=== PATIENT | male | born 1940 | race Caucasian/White ===

== ENCOUNTER 2017-04-05 10:50 | Outpatient (CLI) | payer MEDICARE ==
[2017-04-05 11:31] LABS: ALT (SGPT) 13 U/L (8-55); AST (SGOT) 16 U/L (5-34); Albumin 4.2 g/dL (3.4-4.8); Alkaline Phosphatase 88 U/L (40-150); Anion Gap 15 mmol/L (10-20); BUN (Urea Nitrogen) 14 mg/dL (8.4-25.7); Bilirubin, Total 0.7 mg/dL (0.2-1.2); Calc. Creatinine Clearance 0 mL/min (70-130); Calcium 9.3 mg/dL (7.8-10.44); Carbon Dioxide 25 mmol/L (23-31); Cardiac Risk 2.7 (Less than 4.5); Chloride 104 mmol/L (98-107); Cholesterol 146 mg/dl (< 200 Desired); Estimated GFR-MDRD 57; Glucose 93 mg/dL (83-110); HDL Cholesterol 55 mg/dL (>60 Neg Risk); LDL Cholesterol, Calculated 76 mg/dL; Potassium 4.9 mmol/L (3.5-5.1); Protein, Total 7.2 g/dL (5.8-8.1); Sodium 139 mmol/L (136-145); Triglycerides 76 mg/dL (Less than 150)
[2017-04-05 11:41] LABS: #Basophils 0.1 thou/uL (0.0-0.2); #Eosinphils 0.2 thou/uL (0.0-0.7); #Lymphocytes 1.2 thou/uL (1.20-3.40); #Monocytes 0.4 thou/uL (0.11-0.59); #Neutrophils 3.6 thou/uL (1.40-6.50); %Basophils 1.3 % (0.0-1.0); %Eosinophils 3.6 % (0.0-10.0); %Lymphocytes 21.2 % (21.0-51.0); %Monocytes 7.8 % (0.0-10.0); %Neutrophils 66.1 % (42.0-75.0); Hemoglobin 13.7 g/dL (14.0-18.0); Mean Corpuscular HGB CONC 33.3 g/dL (32.0-36.0); Mean Corpuscular Hemoglobin 34.8 pg (27.0-31.0); Mean Platelet Volume 6.9 fL (7.4-10.4); Platelet Count 205 thou/uL (130-400); RBC Distribution Width 12.5 % (11.5-14.5); Red Blood Cell (RBC) Count 3.95 mill/uL (4.70-6.10); White Blood Cell (WBC) Count 5.4 thou/uL (4.8-10.8)
[2017-04-05 12:16] LABS: MDiff Complete? YES; Macrocytosis SLIGHT = 6-15 cells (100X) (0-5/hpf); PLT Morphology Comment Appears Adequate
== END 2017-04-05 10:51 | disposition home or self-care (01) ==
LOC: HPCALD 10:50
PROVIDERS: ATTEND Family Medicine
DX: Z12.5 Encounter for screening for malignant neoplasm of prostate (principal); Z13.6 Encounter for screening for cardiovascular disorders; I10 Essential (primary) hypertension
CPT/HCPCS: 36415; 80053; 80061; 85025; G0103

== ENCOUNTER 2020-11-16 09:18 | Inpatient (IN) | payer MEDICARE ==
[2020-11-16] MEDS ORDERED: Albuterol Sulfate 2.5 mg/3 ml Neb ONE (09:37)
[2020-11-16] MEDS ORDERED: Albuterol Sulfate 1.25 MG/3 ML NEB ONE (09:58)
[2020-11-16 10:19] LABS: ALT (SGPT) 19 U/L (8-55); AST (SGOT) 23 U/L (5-34); Albumin 3.5 g/dL (3.4-4.8); Alkaline Phosphatase 72 U/L (40-110); Anion Gap 13 mmol/L (10-20); BUN (Urea Nitrogen) 17 mg/dL (8.4-25.7); Bilirubin, Total 1.1 mg/dL (0.2-1.2); Calc. Creatinine Clearance 0 mL/min (70-130); Calcium 8.5 mg/dL (7.8-10.44); Carbon Dioxide 22 mmol/L (23-31); Chloride 100 mmol/L (98-107); Globulin 2.8 g/dL (2.4-3.5); Glucose 109 mg/dL (83-110); Lipase 41 U/L (8-78); Potassium 4.7 mmol/L (3.5-5.1); Protein, Total 6.3 g/dL (5.8-8.1); Sodium 130 mmol/L (136-145)
[2020-11-16 10:20] LABS: Band 2 % (5-11); Hemoglobin 11.7 g/dL (14.0-18.0); Lymphocytes 26 % (21-51); MDiff Complete? YES; Mean Corpuscular HGB CONC 32.7 g/dL (32.0-36.0); Mean Corpuscular Hemoglobin 33.6 pg (27.0-31.0); Mean Platelet Volume 7.8 fL (7.4-10.4); Monocytes 4 % (0-10); Neutrophil 68 % (42-75); Platelet Count 111 thou/uL (130-400); Platelet Morphology Comment Appears Decreased; RBC Distribution Width 12.2 % (11.5-14.5); Red Blood Cell (RBC) Count 3.49 mill/uL (4.70-6.10); White Blood Cell (WBC) Count 4.5 thou/uL (4.8-10.8)
[2020-11-16] MEDS ORDERED: Sodium Chloride 0.9% 100 ML ONE (10:43)
[2020-11-16] MEDS ORDERED: cefTRIAXone\\ROCEPHIN 1 GM VIAL ONE (10:43)
[2020-11-16] MEDS ORDERED: Azithromycin 500 MG VIAL ONE (11:10)
[2020-11-16] MEDS ORDERED: Aspirin Chewable 81 MG TAB ONE (11:10)
[2020-11-16 11:38] LABS: Bilirubin Negative (Negative); Blood, Urine Negative (Negative); Clarity Clear (Clear); Glucose, Urine (Dipstick) Negative (Negative); Ketone, Urine Negative (Negative); Leukocyte Negative (Negative); Nitrite Negative (Negative); Protein, Urine (Dipstick) Negative (Neg-Trace); Specific Gravity, Urine 1.015 (1.005-1.030); Urobilinogen 0.2 mg/dL (Less than 2)
[2020-11-16 12:05] LABS: SARS-CoV-2 NAA Rapid Test DETECTED (NotDetected)
[2020-11-16] MEDS ORDERED: Albuterol 200 PUFF (6.7GM INHALER) INH PRN (12:30)
[2020-11-16] MEDS ORDERED: Ondansetron PF 4 MG/2 ML Vial IVP PRN (12:30)
[2020-11-16] MEDS ORDERED: Ondansetron ODT 4 MG TAB SL PRN (12:30)
[2020-11-16 13:38] VITALS: BMI 25.1
--- NOTE | 2020-11-16 17:39 | RAD ---
PORTABLE CHEST: Date: 11-16-2020 An AP portable film at 1004 is compared with a 07-20-12 study. FINDINGS: The heart is mildly enlarged, perhaps a little more so than before. A cardiac pacer is in place. Ther e is some slight elevation of the left hemidiaphragm, probably with a little bit of overlying niko sive atelectasis. There are no lobar infiltrates. Some of the vessels are slightly prominent but not enough to diagnose congestive change. IMPRESSION: Mild cardiomegaly. POS: HOME
[2020-11-16] MEDS: Enoxaparin Sodium 40 MG/0.4 ML SYRINGE SC SCH (21:59)
[2020-11-16] MEDS: Carvedilol 25 MG TAB PO SCH (22:00)
[2020-11-16] MEDS: Atorvastatin Calcium 10 MG TAB PO SCH (22:00)
[2020-11-16] MEDS: Acetaminophen 325 MG TAB PO PRN (22:03)
[2020-11-17 04:59] LABS: ALT (SGPT) 23 U/L (8-55); AST (SGOT) 32 U/L (5-34); Albumin 3.8 g/dL (3.4-4.8); Alkaline Phosphatase 91 U/L (40-110); Anion Gap 15 mmol/L (10-20); BUN (Urea Nitrogen) 16 mg/dL (8.4-25.7); Bilirubin, Total 0.7 mg/dL (0.2-1.2); Calc. Creatinine Clearance 52 mL/min (70-130); Calcium 9.1 mg/dL (7.8-10.44); Carbon Dioxide 24 mmol/L (23-31); Chloride 100 mmol/L (98-107); Globulin 3.2 g/dL (2.4-3.5); Glucose 103 mg/dL (83-110); Potassium 4.3 mmol/L (3.5-5.1); Sodium 135 mmol/L (136-145)
[2020-11-17 05:09] LABS: Band 8 % (5-11); Eosinophils 1 % (0-10); Hemoglobin 13.1 g/dL (14.0-18.0); Lymphocytes 25 % (21-51); MDiff Complete? YES; Macrocytosis SLIGHT = 6-15 cells (100X) (0-5/hpf); Mean Corpuscular Hemoglobin 34.5 pg (27.0-31.0); Mean Platelet Volume 8.2 fL (7.4-10.4); Monocytes 15 % (0-10); Neutrophil 49 % (42-75); Platelet Count 127 thou/uL (130-400); Platelet Morphology Comment Appears Decreased; RBC Distribution Width 12.1 % (11.5-14.5); Reactive Lymphocytes 1 % (0-10); White Blood Cell (WBC) Count 3.7 thou/uL (4.8-10.8)
--- NOTE | 2020-11-17 06:46 | HP ---
CHIEF COMPLAINT: Cough. HISTORY OF PRESENT ILLNESS: This is an 80-year-old male, who was brought in to the [facility] Emergency Department by EMS secondary to his having called their services from the half-way that she stays in due to patient complaints of worsening upper respiratory symptoms including cough that has been intermittently productive over the last 4-5 days. In conjunction with this, he has had generalized fatigue with poor intake overall and chills. He did not express to have any known sick contacts or fever. Workup in the emergency department revealed concern for a right lower lobe infiltrate with effusion. Cultures were obtained and the patient was started empirically on IV azithromycin and Rocephin. Secondary to his poor intake, he was provided 1 L of normal saline intravenous fluids. On exam, the patient had audible wheezing for which he was provided a nebulized albuterol treatment and use of a Ventolin inhaler. The patient was subsequently found to be COVID positive and the patient has been admitted for COVID positive pneumonia. PAST MEDICAL HISTORY: Includes hypertension and dyslipidemia. PAST SURGICAL HISTORY: Includes pacemaker, bilateral endarterectomy, cardiac ablation, and cataract repair. SOCIAL HISTORY: The patient is a nonsmoker with no EtOH or illicit drug use. ALLERGIES: ADHESIVE BANDAGES. FAMILY HISTORY: Noncontributory. HOME MEDICATIONS: 1. Isosorbide mononitrate extended release 60 mg daily. 2. Vitamin B12 250mcg daily. 3. Magnesium 400 mg b.i.d. 4. Aspirin 81 mg daily. 5. Pravastatin 40 mg at bedtime. 6. Carvedilol 25 mg b.i.d. 7. Folic acid 1 mg daily. 8. Amlodipine 10 mg daily. 9. Plavix 75 mg daily. REVIEW OF SYSTEMS: GENERAL: The patient complains of chills, malaise. Denies fever. HEAD, EYES, EARS, NOSE, AND THROAT: Complains of rhinorrhea. CARDIOVASCULAR: Denies chest pain or palpitations. RESPIRATORY: Complains of persistent cough. GASTROINTESTINAL: Denies nausea, vomiting, diarrhea or abdominal pain. GENITOURINARY: Complains of dysuria. MUSCULOSKELETAL: Complains of body aches. DERMATOLOGIC: Denies rash. NEUROLOGIC: Denies headache. LABORATORY DATA: White blood cell count 4.5, hemoglobin 11.7, hematocrit 35.9, platelets 111. Sodium is 130, potassium 4.7, BUN 17, creatinine 1.30, GFR is 53, glucose 109, lactic acid 1.0. AST 23, ALT 19, alkaline phosphatase 72. Troponin 0.026. BNP 214.8, lipase 41. IMAGING: Official chest x-ray radiological read is pending with ED evaluation concerning for right lower lobe infiltrate with effusion. PHYSICAL EXAMINATION: VITAL SIGNS: Temperature is 98, pulse is 63, respiratory rate 18, oxygen is 94% on room air, and blood pressure 143/67. GENERAL: The patient is alert and oriented, in no acute distress. He has a mild tremor due to chills on exam. HEAD, EYES, EARS, NOSE, AND THROAT: Normocephalic and atraumatic. Extraocular muscles are intact. Sclerae are clear. He has moist mucous membranes. NECK: Supple without lymphadenopathy. CARDIOVASCULAR: Regular rate and rhythm. Normal S1, S2. RESPIRATORY: Diminished breath sounds to the lung bases. Few faint scattered wheezes. No rhonchi. No respiratory distress. ABDOMEN: Soft and nontender to palpation. No rebound or guarding. No masses. EXTREMITIES: No clubbing, cyanosis, or edema. SKIN: No rashes. NEUROLOGIC: Nonfocal with cranial nerves 2 through 12 grossly intact. ASSESSMENT AND PLAN: 1. COVID pneumonia. The patient has been placed in isolation precautions and will follow up blood and urine cultures along with trending of labs and the patient will be resumed on IV Rocephin and p.o. azithromycin. He will also be provided IV dexamethasone. He is currently stable on room air. He will be provided an inhaler for p.r.n. use. We will monitor the patient's p.o. intake. 2. Pancytopenia. The patient's labs appear mildly off his baseline. We will trend his CBC and obtain peripheral smear if indicated. 3. Chronic hyponatremia. We will trend the patient's sodium and consider intravenous fluids as needed. 4. Hypertension. The patient is hemodynamically stable. We will resume his usual blood pressure medications. 5. Dyslipidemia. The patient's statins will be resumed. 6. Prophylaxis. We will provide pantoprazole for gastrointestinal prophylaxis and Lovenox for deep venous thrombosis prophylaxis. CODE STATUS: Full. DISPOSITION: We will plan for the patient to discharge home pending improvement in regard to his COVID pneumonia status and improved p.o. intake and finalizing of obtained cultures. Job ID: [id number] MTDD
[2020-11-17] MEDS ORDERED: FLU VACC QS2020-21(65YR UP)/PF 240 MCG/0.7 ML SYRINGE IM ONE (09:00)
[2020-11-17] MEDS: Dexamethasone 6 MG in Sodium Chloride 0.9% 50 ML IVPB SCH ×2 (09:04→09:19)
[2020-11-17] MEDS: Amlodipine 10 MG TAB PO SCH (09:17)
[2020-11-17] MEDS: Clopidogrel Bisulfate 75 MG TAB PO SCH (09:17)
[2020-11-17] MEDS: Azithromycin 250 MG TAB PO SCH (09:18)
[2020-11-17] MEDS: Folic Acid 1 MG TAB PO SCH (09:18)
[2020-11-17] MEDS: Carvedilol 25 MG TAB PO SCH ×2 (09:18→21:16)
[2020-11-17] MEDS: Dexamethasone 4 mg/ml Vial SLOW IVP SCH (09:20)
[2020-11-17] MEDS ORDERED: cefTRIAXone\\ROCEPHIN 1 GM in Sodium Chloride 0.9% 100 ML IVPB SCH (10:00)
[2020-11-17] MEDS: Acetaminophen 325 MG TAB PO PRN ×2 (14:04→21:16)
[2020-11-17] MEDS: Atorvastatin Calcium 10 MG TAB PO SCH (21:16)
[2020-11-17] MEDS: Enoxaparin Sodium 40 MG/0.4 ML SYRINGE SC SCH (21:16)
[2020-11-18 06:45] LABS: Anion Gap 17 mmol/L (10-20); BUN (Urea Nitrogen) 28 mg/dL (8.4-25.7); Calc. Creatinine Clearance 76 mL/min (70-130); Calcium 9.3 mg/dL (7.8-10.44); Carbon Dioxide 19 mmol/L (23-31); Chloride 100 mmol/L (98-107); Glucose 140 mg/dL (83-110); Potassium 4.4 mmol/L (3.5-5.1); Sodium 132 mmol/L (136-145)
[2020-11-18 06:48] LABS: #Lymphocytes 0.6 thou/uL (1.20-3.40); #Monocytes 0.5 thou/uL (0.11-0.59); #Neutrophils 4.7 thou/uL (1.40-6.50); %Basophils 0.3 % (0.0-1.0); %Monocytes 8.4 % (0.0-10.0); %Neutrophils 81.2 % (42.0-75.0); Hemoglobin 13.3 g/dL (14.0-18.0); Mean Corpuscular Hemoglobin 35.1 pg (27.0-31.0); Mean Platelet Volume 7.5 fL (7.4-10.4); Platelet Count 142 thou/uL (130-400); White Blood Cell (WBC) Count 5.7 thou/uL (4.8-10.8)
[2020-11-18 06:54] LABS: Macrocytosis SLIGHT = 6-15 cells (100X) (0-5/hpf); Platelet Morphology Comment Appears Adequate
[2020-11-18] MEDS: Sodium Chloride 1 GM TAB PO SCH (08:20)
[2020-11-18] MEDS: Carvedilol 25 MG TAB PO SCH ×2 (08:20→21:04)
[2020-11-18] MEDS: Clopidogrel Bisulfate 75 MG TAB PO SCH (08:21)
[2020-11-18] MEDS: Folic Acid 1 MG TAB PO SCH (08:21)
[2020-11-18] MEDS: Azithromycin 250 MG TAB PO SCH (08:21)
[2020-11-18] MEDS: Amlodipine 10 MG TAB PO SCH (08:21)
[2020-11-18] MEDS: Dexamethasone 4 mg/ml Vial SLOW IVP SCH (08:22)
[2020-11-18] MEDS: Acetaminophen 325 MG TAB PO PRN ×2 (11:09→21:17)
[2020-11-18] MEDS: Atorvastatin Calcium 10 MG TAB PO SCH (21:04)
[2020-11-18] MEDS: Enoxaparin Sodium 40 MG/0.4 ML SYRINGE SC SCH (21:04)
[2020-11-19 05:35] VITALS: BP 130/65; TEMP 97.1
--- NOTE | 2020-11-19 08:08 | DIS ---
DATE OF ADMISSION: 11/16/2020 DATE OF DISCHARGE: 11/19/2020 ADMISSION DIAGNOSES: COVID pneumonia, pancytopenia, chronic hypernatremia. SECONDARY DIAGNOSES: Hypertension and dyslipidemia. PROCEDURES: On 11/16/2020, chest x-ray showed mild cardiomegaly. HOSPITAL COURSE: An 80-year-old male presented to the [facility] Emergency Department via transportation by EMS secondary to progressive worsening of upper respiratory symptoms including cough and shortness of breath over a 4- to 5-day time period. He also had poor intake and progressive generalized malaise over the same time period. He was found to be COVID positive in the emergency department. He had imaging which was concerning for right lower lobe infiltrate as well for which he was provided IV azithromycin and Rocephin after urine and blood cultures had been obtained. Due to his poor intake, he was also provided intravenous fluids. He received nebulized albuterol and use of the Ventolin inhaler secondary to audible wheezing and tachypnea. He was subsequently admitted to the floor for further care in regard to his COVID pneumonia. The patient was provided IV dexamethasone and p.o. azithromycin with trending of his labs. He initially had pancytopenia possibly related to the underlying COVID, however, his labs did rebound to normalization of his white blood cell count and platelet count. He does have a mild chronic anemia. Due to his chronically low sodium, he was provided daily sodium chloride tablets and his sodium remained stable, although slightly lower than reference range. Physical Therapy evaluated the patient secondary to concern for physical deconditioning and further evaluation of his respiratory status with activity. He did improve in regard to his functional status, and the patient's intake improved back to his baseline as well. He has remained stable on room air with improved respiratory status, and along with return of his cultures being negative and stable labs, he is suitable for discharge back to his home setting at this time. DISPOSITION: The patient will be discharged home where he does live alone. He may follow up with myself in the clinic in 1 week. He has been advised of isolation precautions which he should adhere to for at least the next 10 days. DISCHARGE MEDICATIONS: Include, 1. Amlodipine 10 mg daily. 2. Pravastatin 40 mg at bedtime. 3. Folic acid 1 mg daily. 4. Isosorbide mononitrate extended release 60 mg daily. 5. Plavix 75 mg daily. 6. Carvedilol 25 mg b.i.d. 7. Sodium chloride 1 g p.o. daily. Total time spent in preparation of discharge of this patient is greater than 30 minutes. Job ID: [id number] MTDD
[2020-11-19] MEDS: Dexamethasone 4 mg/ml Vial SLOW IVP SCH (08:46)
[2020-11-19] MEDS: Sodium Chloride 1 GM TAB PO SCH (08:46)
[2020-11-19] MEDS: Amlodipine 10 MG TAB PO SCH (08:47)
[2020-11-19] MEDS: Clopidogrel Bisulfate 75 MG TAB PO SCH (08:47)
[2020-11-19] MEDS: Folic Acid 1 MG TAB PO SCH (08:47)
[2020-11-19] MEDS: Carvedilol 25 MG TAB PO SCH (08:47)
[2020-11-19] MEDS: Azithromycin 250 MG TAB PO SCH (08:48)
== END 2020-11-19 12:25 | disposition home or self-care (01) | DRG 177 ==
LOC: BURERS 09:18 → BURMED 11:41
PROVIDERS: ADMIT Family Medicine; ATTEND Family Medicine
PROC: 8E0ZXY6 Isolation (ICD-10-PCS; principal; 2020-11-16)
DX: U07.1 COVID-19 (principal); J12.82 Pneumonia due to coronavirus disease 2019; E87.1 Hypo-osmolality and hyponatremia; D61.818 Other pancytopenia; E87.0 Hyperosmolality and hypernatremia; I10 Essential (primary) hypertension; E78.5 Hyperlipidemia, unspecified; Z95.0 Presence of cardiac pacemaker; Z98.890 Other specified postprocedural states; Z98.49 Cataract extraction status, unspecified eye; Z79.82 Long term (current) use of aspirin; Z79.899 Other long term (current) drug therapy; Z79.01 Long term (current) use of anticoagulants; I51.7 Cardiomegaly
CPT/HCPCS: 0240U; 36415; 71045; 80048; 80053; 81003; 83605; 83690; 83880; 84484; 85025; 87040; 87086; 93005; 96365; 96367; J0456; J0696; J1100; J1650; J3490; J7611

== ENCOUNTER 2021-03-02 19:27 | Emergency (ER) | payer MEDICARE ==
[2021-03-02 20:12] LABS: Clarity Clear (Clear); Leukocyte Negative (Negative); Nitrite Negative (Negative); pH, Urine 8.5 (5.0-9.0)
[2021-03-02 20:13] LABS: Bilirubin Negative (Negative); Blood, Urine Negative (Negative); Glucose, Urine (Dipstick) Negative (Negative); Ketone, Urine Trace mg/dL (Negative); Protein, Urine (Dipstick) Negative (Neg-Trace); Urobilinogen 0.2 mg/dL (Less than 2)
[2021-03-02 20:21] LABS: Hemoglobin 13.7 g/dL (14.0-18.0); Mean Corpuscular HGB CONC 33.1 g/dL (32.0-36.0); Mean Corpuscular Hemoglobin 34.1 pg (27.0-31.0); Mean Platelet Volume 7.6 fL (7.4-10.4); Platelet Count 163 thou/uL (130-400); Red Blood Cell (RBC) Count 4.02 mill/uL (4.70-6.10); White Blood Cell (WBC) Count 6.7 thou/uL (4.8-10.8)
[2021-03-02 20:25] LABS: Band 9 % (5-11); Eosinophils 2 % (0-10); Lymphocytes 3 % (21-51); MDiff Complete? YES; Monocytes 14 % (0-10); Neutrophil 69 % (42-75); Reactive Lymphocytes 1 % (0-10)
[2021-03-02 20:26] LABS: ALT (SGPT) 18 U/L (8-55); AST (SGOT) 28 U/L (5-34); Albumin 4.1 g/dL (3.4-4.8); Alkaline Phosphatase 85 U/L (40-110); Anion Gap 9 mmol/L (10-20); BUN (Urea Nitrogen) 11 mg/dL (8.4-25.7); Bilirubin, Total 1.2 mg/dL (0.2-1.2); Calc. Creatinine Clearance 0 mL/min (70-130); Calcium 9.5 mg/dL (7.8-10.44); Carbon Dioxide 23 mmol/L (23-31); Chloride 93 mmol/L (98-107); Globulin 3.8 g/dL (2.4-3.5); Glucose 132 mg/dL (83-110); Lipase 22 U/L (8-78); Potassium 4.3 mmol/L (3.5-5.1); Protein, Total 7.9 g/dL (5.8-8.1); Sodium 121 mmol/L (136-145)
[2021-03-02] MEDS ORDERED: Dicyclomine 20 MG TAB ONE (20:43)
[2021-03-02 22:10] LABS: Sodium 134 mmol/L (136-145)
== END 2021-03-02 22:50 | disposition home or self-care (01) ==
LOC: BURERS 19:27
DX: R10.84 Generalized abdominal pain (principal); E87.1 Hypo-osmolality and hyponatremia; I10 Essential (primary) hypertension; E78.5 Hyperlipidemia, unspecified; Z79.899 Other long term (current) drug therapy
CPT/HCPCS: 36415; 74176; 80053; 81003; 83690; 85025; 93005

== ENCOUNTER 2021-07-14 10:46 | Inpatient (IN) | payer MEDICARE ==
[2021-07-14 17:15] VITALS: BMI 32.5
[2021-07-14] MEDS: Carvedilol 25 MG TAB PO SCH (21:18)
[2021-07-14] MEDS: traMADol HCl 50 MG TAB PO PRN (21:18)
[2021-07-14] MEDS: Senokot S 8.6-50 MG TAB PO SCH (21:19)
[2021-07-15] MEDS: Acetaminophen 325 MG TAB PO SCH ×4 (00:02→19:58)
[2021-07-15] MEDS ORDERED: Amlodipine 10 MG TAB PO SCH (09:00)
[2021-07-15] MEDS: Senokot S 8.6-50 MG TAB PO SCH ×2 (10:31→21:06)
[2021-07-15] MEDS: Carvedilol 25 MG TAB PO SCH ×2 (10:32→21:06)
[2021-07-15] MEDS: Polyethylene Glycol 3350 17 GM Packet PO SCH (10:32)
[2021-07-15] MEDS: Folic Acid 1 MG TAB PO SCH (10:32)
[2021-07-15] MEDS: Clopidogrel Bisulfate 75 MG TAB PO SCH (10:32)
[2021-07-15] MEDS: Sodium Chloride 1 GM TAB PO SCH (10:32)
[2021-07-15] MEDS: Amlodipine 5 MG TAB PO SCH (10:37)
[2021-07-15] MEDS: Enoxaparin Sodium 40 MG/0.4 ML SYRINGE SC SCH (21:06)
[2021-07-15] MEDS: Atorvastatin Calcium 10 MG TAB PO SCH (21:06)
[2021-07-15] MEDS: traMADol HCl 50 MG TAB PO PRN (21:12)
[2021-07-16] MEDS: Acetaminophen 325 MG TAB PO SCH ×4 (00:18→17:58)
[2021-07-16] MEDS: Sodium Chloride 1 GM TAB PO SCH (08:31)
[2021-07-16] MEDS: Carvedilol 25 MG TAB PO SCH ×2 (08:32→20:56)
[2021-07-16] MEDS: Folic Acid 1 MG TAB PO SCH (08:32)
[2021-07-16] MEDS: Clopidogrel Bisulfate 75 MG TAB PO SCH (08:32)
[2021-07-16] MEDS: Senokot S 8.6-50 MG TAB PO SCH ×2 (08:32→20:56)
[2021-07-16] MEDS: Amlodipine 5 MG TAB PO SCH (08:32)
[2021-07-16] MEDS: Polyethylene Glycol 3350 17 GM Packet PO SCH (08:33)
[2021-07-16] MEDS: Atorvastatin Calcium 10 MG TAB PO SCH (20:56)
[2021-07-16] MEDS: Enoxaparin Sodium 40 MG/0.4 ML SYRINGE SC SCH (20:56)
[2021-07-17] MEDS: traMADol HCl 50 MG TAB PO PRN ×2 (04:28→20:01)
[2021-07-17] MEDS: Acetaminophen 325 MG TAB PO SCH ×5 (04:29→23:27)
[2021-07-17] MEDS: Senokot S 8.6-50 MG TAB PO SCH ×2 (08:46→19:59)
[2021-07-17] MEDS: Folic Acid 1 MG TAB PO SCH (08:46)
[2021-07-17] MEDS: Sodium Chloride 1 GM TAB PO SCH (08:47)
[2021-07-17] MEDS: Carvedilol 25 MG TAB PO SCH ×2 (08:47→19:58)
[2021-07-17] MEDS: Amlodipine 5 MG TAB PO SCH (08:47)
[2021-07-17] MEDS: Clopidogrel Bisulfate 75 MG TAB PO SCH (08:47)
[2021-07-17] MEDS: Polyethylene Glycol 3350 17 GM Packet PO SCH (08:48)
[2021-07-17] MEDS: Enoxaparin Sodium 40 MG/0.4 ML SYRINGE SC SCH (19:57)
[2021-07-17] MEDS: Atorvastatin Calcium 10 MG TAB PO SCH (19:58)
[2021-07-18 05:18] LABS: Hemoglobin 8.2 g/dL (14.0-18.0); Platelet Count 245 thou/uL (130-400)
[2021-07-18] MEDS: Acetaminophen 325 MG TAB PO SCH ×3 (05:20→17:30)
[2021-07-18] MEDS: Folic Acid 1 MG TAB PO SCH (09:42)
[2021-07-18] MEDS: Amlodipine 5 MG TAB PO SCH (09:42)
[2021-07-18] MEDS: Sodium Chloride 1 GM TAB PO SCH (09:43)
[2021-07-18] MEDS: Carvedilol 25 MG TAB PO SCH ×2 (09:43→20:56)
[2021-07-18] MEDS: Senokot S 8.6-50 MG TAB PO SCH ×2 (09:43→20:56)
[2021-07-18] MEDS: Clopidogrel Bisulfate 75 MG TAB PO SCH (09:43)
[2021-07-18] MEDS: Polyethylene Glycol 3350 17 GM Packet PO SCH (09:44)
[2021-07-18] MEDS: Cyclobenzaprine 10 MG TAB PO PRN (17:30)
[2021-07-18] MEDS: Atorvastatin Calcium 10 MG TAB PO SCH (20:56)
[2021-07-18] MEDS: Enoxaparin Sodium 40 MG/0.4 ML SYRINGE SC SCH (20:58)
[2021-07-19] MEDS: Acetaminophen 325 MG TAB PO SCH ×5 (00:58→23:43)
[2021-07-19] MEDS: Amlodipine 5 MG TAB PO SCH (06:15)
[2021-07-19] MEDS: Sodium Chloride 1 GM TAB PO SCH (08:24)
[2021-07-19] MEDS: Senokot S 8.6-50 MG TAB PO SCH ×2 (08:25→20:16)
[2021-07-19] MEDS: Clopidogrel Bisulfate 75 MG TAB PO SCH (08:25)
[2021-07-19] MEDS: Carvedilol 25 MG TAB PO SCH ×2 (08:25→20:17)
[2021-07-19] MEDS: traMADol HCl 50 MG TAB PO PRN ×2 (09:25→20:22)
[2021-07-19] MEDS: Folic Acid 1 MG TAB PO SCH (09:45)
[2021-07-19] MEDS: Polyethylene Glycol 3350 17 GM Packet PO SCH (14:02)
[2021-07-19] MEDS: Atorvastatin Calcium 10 MG TAB PO SCH (20:16)
[2021-07-19] MEDS: Enoxaparin Sodium 40 MG/0.4 ML SYRINGE SC SCH (20:17)
[2021-07-20] MEDS: Acetaminophen 325 MG TAB PO SCH ×3 (05:36→17:47)
[2021-07-20 05:56] LABS: ALT (SGPT) 14 U/L (8-55); AST (SGOT) 21 U/L (5-34); Albumin 3.2 g/dL (3.4-4.8); Alkaline Phosphatase 96 U/L (40-110); Anion Gap 11 mmol/L (10-20); BUN (Urea Nitrogen) 17 mg/dL (8.4-25.7); Bilirubin, Total 1.1 mg/dL (0.2-1.2); Calc. Creatinine Clearance 82 mL/min (70-130); Calcium 9.7 mg/dL (7.8-10.44); Carbon Dioxide 26 mmol/L (23-31); Chloride 101 mmol/L (98-107); Glucose 97 mg/dL (83-110); Hemoglobin 8.9 g/dL (14.0-18.0); Mean Corpuscular HGB CONC 33.3 g/dL (32.0-36.0); Mean Corpuscular Hemoglobin 34.9 pg (27.0-31.0); Mean Platelet Volume 5.9 fL (7.4-10.4); Platelet Count 276 thou/uL (130-400); Potassium 4.1 mmol/L (3.5-5.1); Protein, Total 6.2 g/dL (5.8-8.1); RBC Distribution Width 14.3 % (11.5-14.5); Red Blood Cell (RBC) Count 2.54 mill/uL (4.70-6.10); Sodium 134 mmol/L (136-145); White Blood Cell (WBC) Count 6.9 thou/uL (4.8-10.8)
[2021-07-20 06:32] LABS: #Basophils 0.1 thou/uL (0.0-0.2); #Eosinphils 0.5 thou/uL (0.0-0.7); #Lymphocytes 1.4 thou/uL (1.20-3.40); #Monocytes 0.7 thou/uL (0.11-0.59); #Neutrophils 4.2 thou/uL (1.40-6.50); %Basophils 1.5 % (0.0-1.0); %Eosinophils 7.1 % (0.0-10.0); %Lymphocytes 20.2 % (21.0-51.0); %Neutrophils 61.2 % (42.0-75.0); Platelet Morphology Comment Appears Adequate; RBC Morphology Normal
[2021-07-20 08:19] LABS: SARS-CoV-2 PCR by NAA Not Detected (NotDetected)
[2021-07-20] MEDS: Sodium Chloride 1 GM TAB PO SCH (08:25)
[2021-07-20] MEDS: Clopidogrel Bisulfate 75 MG TAB PO SCH (08:25)
[2021-07-20] MEDS: Senokot S 8.6-50 MG TAB PO SCH ×2 (08:25→21:03)
[2021-07-20] MEDS: Carvedilol 25 MG TAB PO SCH ×2 (08:25→21:03)
[2021-07-20] MEDS: Amlodipine 5 MG TAB PO SCH (08:25)
[2021-07-20] MEDS: Folic Acid 1 MG TAB PO SCH (08:26)
[2021-07-20] MEDS: Polyethylene Glycol 3350 17 GM Packet PO SCH (08:26)
[2021-07-20] MEDS: Atorvastatin Calcium 10 MG TAB PO SCH (21:03)
[2021-07-20] MEDS: Enoxaparin Sodium 40 MG/0.4 ML SYRINGE SC SCH (21:03)
[2021-07-21] MEDS: Acetaminophen 325 MG TAB PO SCH ×4 (00:37→17:55)
[2021-07-21 05:06] LABS: Hemoglobin 9.7 g/dL (14.0-18.0); Platelet Count 284 thou/uL (130-400)
[2021-07-21] MEDS: Senokot S 8.6-50 MG TAB PO SCH ×2 (08:45→20:20)
[2021-07-21] MEDS: Sodium Chloride 1 GM TAB PO SCH (08:46)
[2021-07-21] MEDS: Clopidogrel Bisulfate 75 MG TAB PO SCH (08:46)
[2021-07-21] MEDS: Folic Acid 1 MG TAB PO SCH (08:46)
[2021-07-21] MEDS: Carvedilol 25 MG TAB PO SCH ×2 (08:46→20:20)
[2021-07-21] MEDS: Amlodipine 5 MG TAB PO SCH (08:46)
[2021-07-21] MEDS: Polyethylene Glycol 3350 17 GM Packet PO SCH (08:47)
[2021-07-21] MEDS: traMADol HCl 50 MG TAB PO PRN (20:18)
[2021-07-21] MEDS: Enoxaparin Sodium 40 MG/0.4 ML SYRINGE SC SCH (20:19)
[2021-07-21] MEDS: Atorvastatin Calcium 10 MG TAB PO SCH (20:20)
[2021-07-22] MEDS: Acetaminophen 325 MG TAB PO SCH ×5 (00:28→23:42)
[2021-07-22] MEDS: Amlodipine 5 MG TAB PO SCH (09:02)
[2021-07-22] MEDS: Sodium Chloride 1 GM TAB PO SCH (09:02)
[2021-07-22] MEDS: Carvedilol 25 MG TAB PO SCH ×2 (09:02→20:35)
[2021-07-22] MEDS: Folic Acid 1 MG TAB PO SCH (09:03)
[2021-07-22] MEDS: Clopidogrel Bisulfate 75 MG TAB PO SCH (09:03)
[2021-07-22] MEDS: Senokot S 8.6-50 MG TAB PO SCH ×2 (09:03→20:34)
[2021-07-22] MEDS: Polyethylene Glycol 3350 17 GM Packet PO SCH (09:03)
[2021-07-22] MEDS: Atorvastatin Calcium 10 MG TAB PO SCH (20:34)
[2021-07-22] MEDS: traMADol HCl 50 MG TAB PO PRN (20:35)
[2021-07-22] MEDS: Enoxaparin Sodium 40 MG/0.4 ML SYRINGE SC SCH (20:36)
[2021-07-23] MEDS: Acetaminophen 325 MG TAB PO SCH ×4 (05:40→23:40)
[2021-07-23] MEDS: traMADol HCl 50 MG TAB PO PRN (08:22)
[2021-07-23] MEDS: Carvedilol 25 MG TAB PO SCH ×2 (08:23→20:44)
[2021-07-23] MEDS: Folic Acid 1 MG TAB PO SCH (08:23)
[2021-07-23] MEDS: Amlodipine 5 MG TAB PO SCH (08:23)
[2021-07-23] MEDS: Clopidogrel Bisulfate 75 MG TAB PO SCH (08:23)
[2021-07-23] MEDS: Sodium Chloride 1 GM TAB PO SCH (08:24)
[2021-07-23] MEDS: Senokot S 8.6-50 MG TAB PO SCH ×2 (08:24→20:44)
[2021-07-23] MEDS: Polyethylene Glycol 3350 17 GM Packet PO SCH (09:05)
[2021-07-23] MEDS: Cyclobenzaprine 10 MG TAB PO PRN (17:47)
[2021-07-23] MEDS: Atorvastatin Calcium 10 MG TAB PO SCH (20:44)
[2021-07-23] MEDS: Enoxaparin Sodium 40 MG/0.4 ML SYRINGE SC SCH (20:44)
[2021-07-24] MEDS: Acetaminophen 325 MG TAB PO SCH ×3 (05:25→17:40)
[2021-07-24 05:50] LABS: Hemoglobin 10.6 g/dL (14.0-18.0); Platelet Count 289 thou/uL (130-400)
[2021-07-24] MEDS: Amlodipine 5 MG TAB PO SCH (09:03)
[2021-07-24] MEDS: Sodium Chloride 1 GM TAB PO SCH (09:04)
[2021-07-24] MEDS: Carvedilol 25 MG TAB PO SCH ×2 (09:04→20:51)
[2021-07-24] MEDS: Folic Acid 1 MG TAB PO SCH (09:04)
[2021-07-24] MEDS: Senokot S 8.6-50 MG TAB PO SCH ×2 (09:04→20:51)
[2021-07-24] MEDS: Clopidogrel Bisulfate 75 MG TAB PO SCH (09:04)
[2021-07-24] MEDS: Polyethylene Glycol 3350 17 GM Packet PO SCH (09:04)
[2021-07-24] MEDS: Atorvastatin Calcium 10 MG TAB PO SCH (20:51)
[2021-07-24] MEDS: Enoxaparin Sodium 40 MG/0.4 ML SYRINGE SC SCH (20:52)
[2021-07-25] MEDS: Acetaminophen 325 MG TAB PO SCH ×4 (05:49→17:26)
[2021-07-25] MEDS: Sodium Chloride 1 GM TAB PO SCH (09:04)
[2021-07-25] MEDS: Folic Acid 1 MG TAB PO SCH (09:04)
[2021-07-25] MEDS: Amlodipine 5 MG TAB PO SCH (09:04)
[2021-07-25] MEDS: Carvedilol 25 MG TAB PO SCH ×2 (09:04→20:29)
[2021-07-25] MEDS: Clopidogrel Bisulfate 75 MG TAB PO SCH (09:05)
[2021-07-25] MEDS: Senokot S 8.6-50 MG TAB PO SCH ×2 (09:05→20:28)
[2021-07-25] MEDS: Polyethylene Glycol 3350 17 GM Packet PO SCH (09:05)
[2021-07-25] MEDS: Enoxaparin Sodium 40 MG/0.4 ML SYRINGE SC SCH (20:28)
[2021-07-25] MEDS: Atorvastatin Calcium 10 MG TAB PO SCH (20:29)
[2021-07-26] MEDS: Acetaminophen 325 MG TAB PO SCH ×4 (05:15→17:32)
[2021-07-26] MEDS: Senokot S 8.6-50 MG TAB PO SCH ×3 (08:55→20:08)
[2021-07-26] MEDS: Sodium Chloride 1 GM TAB PO SCH (08:55)
[2021-07-26] MEDS: Carvedilol 25 MG TAB PO SCH ×2 (08:55→20:09)
[2021-07-26] MEDS: Clopidogrel Bisulfate 75 MG TAB PO SCH (08:55)
[2021-07-26] MEDS: Folic Acid 1 MG TAB PO SCH (08:56)
[2021-07-26] MEDS: Amlodipine 5 MG TAB PO SCH (08:56)
[2021-07-26] MEDS: Polyethylene Glycol 3350 17 GM Packet PO SCH (08:57)
[2021-07-26] MEDS: Clindamycin 150 MG CAP PO SCH (20:08)
[2021-07-26] MEDS: Atorvastatin Calcium 10 MG TAB PO SCH (20:08)
[2021-07-26] MEDS: Enoxaparin Sodium 40 MG/0.4 ML SYRINGE SC SCH (20:09)
[2021-07-27] MEDS: Acetaminophen 325 MG TAB PO SCH ×4 (00:37→17:23)
[2021-07-27 05:54] LABS: Hemoglobin 10.5 g/dL (14.0-18.0); Platelet Count 333 thou/uL (130-400)
[2021-07-27] MEDS: Nystatin Powder 15 GM BOT TOP PRN ×2 (08:27→20:20)
[2021-07-27] MEDS: Clindamycin 150 MG CAP PO SCH ×3 (08:27→20:17)
[2021-07-27] MEDS: Carvedilol 25 MG TAB PO SCH ×2 (08:28→20:17)
[2021-07-27] MEDS: Sodium Chloride 1 GM TAB PO SCH (08:28)
[2021-07-27] MEDS: Clopidogrel Bisulfate 75 MG TAB PO SCH (08:28)
[2021-07-27] MEDS: Amlodipine 5 MG TAB PO SCH (08:28)
[2021-07-27] MEDS: Senokot S 8.6-50 MG TAB PO SCH ×2 (08:28→21:00)
[2021-07-27] MEDS: Folic Acid 1 MG TAB PO SCH (08:28)
[2021-07-27] MEDS: Polyethylene Glycol 3350 17 GM Packet PO SCH (08:31)
[2021-07-27] MEDS: traMADol HCl 50 MG TAB PO PRN (12:13)
[2021-07-27] MEDS: Atorvastatin Calcium 10 MG TAB PO SCH (20:17)
[2021-07-27] MEDS: Enoxaparin Sodium 40 MG/0.4 ML SYRINGE SC SCH (20:18)
[2021-07-28] MEDS: Amlodipine 5 MG TAB PO SCH (08:00)
[2021-07-28] MEDS: Clindamycin 150 MG CAP PO SCH ×3 (08:01→20:22)
[2021-07-28] MEDS: Clopidogrel Bisulfate 75 MG TAB PO SCH (08:01)
[2021-07-28] MEDS: Folic Acid 1 MG TAB PO SCH (08:02)
[2021-07-28] MEDS: Sodium Chloride 1 GM TAB PO SCH (08:03)
[2021-07-28] MEDS: Carvedilol 25 MG TAB PO SCH ×2 (08:03→20:23)
[2021-07-28] MEDS: Acetaminophen 325 MG TAB PO SCH ×5 (08:05→23:57)
[2021-07-28] MEDS: Senokot S 8.6-50 MG TAB PO SCH ×2 (11:51→20:22)
[2021-07-28] MEDS: Polyethylene Glycol 3350 17 GM Packet PO SCH ×2 (11:51→15:13)
[2021-07-28] MEDS: traMADol HCl 50 MG TAB PO PRN (20:23)
[2021-07-28] MEDS: Atorvastatin Calcium 10 MG TAB PO SCH (20:23)
[2021-07-28] MEDS: Enoxaparin Sodium 40 MG/0.4 ML SYRINGE SC SCH (20:25)
[2021-07-29 01:46] LABS: SARS-CoV-2 PCR by NAA Not Detected (NotDetected)
[2021-07-29] MEDS: Acetaminophen 325 MG TAB PO SCH ×3 (05:36→17:54)
[2021-07-29] MEDS: Senokot S 8.6-50 MG TAB PO SCH ×2 (08:32→20:54)
[2021-07-29] MEDS: Clindamycin 150 MG CAP PO SCH ×3 (08:32→20:53)
[2021-07-29] MEDS: Sodium Chloride 1 GM TAB PO SCH (08:33)
[2021-07-29] MEDS: Carvedilol 25 MG TAB PO SCH ×2 (08:33→20:53)
[2021-07-29] MEDS: Folic Acid 1 MG TAB PO SCH (08:33)
[2021-07-29] MEDS: Clopidogrel Bisulfate 75 MG TAB PO SCH (08:33)
[2021-07-29] MEDS: Polyethylene Glycol 3350 17 GM Packet PO SCH (08:34)
[2021-07-29] MEDS: Enoxaparin Sodium 40 MG/0.4 ML SYRINGE SC SCH (20:53)
[2021-07-29] MEDS: Atorvastatin Calcium 10 MG TAB PO SCH (20:53)
[2021-07-30] MEDS: Acetaminophen 325 MG TAB PO SCH ×4 (00:22→19:27)
[2021-07-30 05:48] LABS: Hemoglobin 11.1 g/dL (14.0-18.0); Platelet Count 363 thou/uL (130-400)
[2021-07-30] MEDS: Clindamycin 150 MG CAP PO SCH ×3 (10:58→20:21)
[2021-07-30] MEDS: Clopidogrel Bisulfate 75 MG TAB PO SCH (10:59)
[2021-07-30] MEDS: Carvedilol 25 MG TAB PO SCH ×2 (10:59→20:22)
[2021-07-30] MEDS: Folic Acid 1 MG TAB PO SCH (10:59)
[2021-07-30] MEDS: Sodium Chloride 1 GM TAB PO SCH (10:59)
[2021-07-30] MEDS: Senokot S 8.6-50 MG TAB PO SCH ×2 (10:59→20:21)
[2021-07-30] MEDS: Polyethylene Glycol 3350 17 GM Packet PO SCH (11:02)
[2021-07-30] MEDS: Atorvastatin Calcium 10 MG TAB PO SCH (20:21)
[2021-07-30] MEDS: traMADol HCl 50 MG TAB PO PRN (20:22)
[2021-07-30] MEDS: Enoxaparin Sodium 40 MG/0.4 ML SYRINGE SC SCH (20:23)
[2021-07-31] MEDS: Acetaminophen 325 MG TAB PO SCH ×4 (00:21→17:58)
[2021-07-31] MEDS: Folic Acid 1 MG TAB PO SCH (10:29)
[2021-07-31] MEDS: Senokot S 8.6-50 MG TAB PO SCH ×2 (10:29→20:54)
[2021-07-31] MEDS: Sodium Chloride 1 GM TAB PO SCH (10:29)
[2021-07-31] MEDS: Clopidogrel Bisulfate 75 MG TAB PO SCH (10:29)
[2021-07-31] MEDS: Clindamycin 150 MG CAP PO SCH ×3 (10:29→20:54)
[2021-07-31] MEDS: Carvedilol 25 MG TAB PO SCH ×2 (10:29→20:54)
[2021-07-31] MEDS: Polyethylene Glycol 3350 17 GM Packet PO SCH (15:16)
[2021-07-31] MEDS: Atorvastatin Calcium 10 MG TAB PO SCH (20:54)
[2021-07-31] MEDS: Enoxaparin Sodium 40 MG/0.4 ML SYRINGE SC SCH (20:54)
[2021-08-01] MEDS: Acetaminophen 325 MG TAB PO SCH ×5 (00:18→23:04)
[2021-08-01] MEDS: traMADol HCl 50 MG TAB PO PRN (11:10)
[2021-08-01] MEDS: Clindamycin 150 MG CAP PO SCH ×3 (11:12→21:10)
[2021-08-01] MEDS: Folic Acid 1 MG TAB PO SCH (11:12)
[2021-08-01] MEDS: Senokot S 8.6-50 MG TAB PO SCH ×2 (11:12→21:10)
[2021-08-01] MEDS: Sodium Chloride 1 GM TAB PO SCH (11:12)
[2021-08-01] MEDS: Carvedilol 25 MG TAB PO SCH ×2 (11:13→21:10)
[2021-08-01] MEDS: Polyethylene Glycol 3350 17 GM Packet PO SCH (11:13)
[2021-08-01] MEDS: Clopidogrel Bisulfate 75 MG TAB PO SCH (11:13)
[2021-08-01] MEDS: Atorvastatin Calcium 10 MG TAB PO SCH (21:10)
[2021-08-01] MEDS: Enoxaparin Sodium 40 MG/0.4 ML SYRINGE SC SCH (21:10)
[2021-08-02] MEDS: Acetaminophen 325 MG TAB PO SCH ×3 (05:29→17:49)
[2021-08-02 06:21] LABS: Hemoglobin 10.9 g/dL (14.0-18.0); Platelet Count 307 thou/uL (130-400)
[2021-08-02] MEDS: Clindamycin 150 MG CAP PO SCH ×2 (09:32→17:48)
[2021-08-02] MEDS: Clopidogrel Bisulfate 75 MG TAB PO SCH (09:32)
[2021-08-02] MEDS: Sodium Chloride 1 GM TAB PO SCH (09:32)
[2021-08-02] MEDS: Folic Acid 1 MG TAB PO SCH (09:32)
[2021-08-02] MEDS: Senokot S 8.6-50 MG TAB PO SCH ×2 (09:32→20:41)
[2021-08-02] MEDS: Carvedilol 25 MG TAB PO SCH ×2 (09:33→20:41)
[2021-08-02] MEDS: traMADol HCl 50 MG TAB PO PRN (09:33)
[2021-08-02] MEDS: Cyclobenzaprine 10 MG TAB PO PRN (17:48)
[2021-08-02] MEDS: Polyethylene Glycol 3350 17 GM Packet PO SCH (17:50)
[2021-08-02] MEDS: Enoxaparin Sodium 40 MG/0.4 ML SYRINGE SC SCH (20:40)
[2021-08-02] MEDS: Atorvastatin Calcium 10 MG TAB PO SCH (20:41)
[2021-08-03] MEDS: Acetaminophen 325 MG TAB PO SCH ×5 (01:11→23:38)
[2021-08-03] MEDS: traMADol HCl 50 MG TAB PO PRN (11:35)
[2021-08-03] MEDS: Sodium Chloride 1 GM TAB PO SCH (11:37)
[2021-08-03] MEDS: Clopidogrel Bisulfate 75 MG TAB PO SCH (11:38)
[2021-08-03] MEDS: Carvedilol 25 MG TAB PO SCH ×2 (11:38→21:06)
[2021-08-03] MEDS: Polyethylene Glycol 3350 17 GM Packet PO SCH (11:38)
[2021-08-03] MEDS: Folic Acid 1 MG TAB PO SCH (11:38)
[2021-08-03] MEDS: Senokot S 8.6-50 MG TAB PO SCH ×2 (11:38→21:07)
[2021-08-03] MEDS: Enoxaparin Sodium 40 MG/0.4 ML SYRINGE SC SCH (21:06)
[2021-08-03] MEDS: Atorvastatin Calcium 10 MG TAB PO SCH (21:06)
[2021-08-04] MEDS: Acetaminophen 325 MG TAB PO SCH ×3 (04:52→21:20)
[2021-08-04] MEDS: traMADol HCl 50 MG TAB PO PRN (08:31)
[2021-08-04] MEDS: Folic Acid 1 MG TAB PO SCH (08:33)
[2021-08-04] MEDS: Carvedilol 25 MG TAB PO SCH ×2 (08:34→21:19)
[2021-08-04] MEDS: Clopidogrel Bisulfate 75 MG TAB PO SCH (08:34)
[2021-08-04] MEDS: Senokot S 8.6-50 MG TAB PO SCH ×2 (08:34→21:19)
[2021-08-04] MEDS: Sodium Chloride 1 GM TAB PO SCH (08:35)
[2021-08-04] MEDS: Polyethylene Glycol 3350 17 GM Packet PO SCH (08:35)
[2021-08-04] MEDS: Atorvastatin Calcium 10 MG TAB PO SCH (21:19)
[2021-08-04] MEDS: Enoxaparin Sodium 40 MG/0.4 ML SYRINGE SC SCH (21:21)
[2021-08-05] MEDS: Acetaminophen 325 MG TAB PO SCH ×4 (00:15→19:33)
[2021-08-05 05:26] LABS: Hemoglobin 10.7 g/dL (14.0-18.0); Platelet Count 260 thou/uL (130-400)
[2021-08-05] MEDS: Senokot S 8.6-50 MG TAB PO SCH ×2 (09:28→21:56)
[2021-08-05] MEDS: traMADol HCl 50 MG TAB PO PRN (09:29)
[2021-08-05] MEDS: Folic Acid 1 MG TAB PO SCH (09:30)
[2021-08-05] MEDS: Carvedilol 25 MG TAB PO SCH ×2 (09:30→21:55)
[2021-08-05] MEDS: Clopidogrel Bisulfate 75 MG TAB PO SCH (09:30)
[2021-08-05] MEDS: Sodium Chloride 1 GM TAB PO SCH (09:30)
[2021-08-05] MEDS: Polyethylene Glycol 3350 17 GM Packet PO SCH (09:31)
[2021-08-05 15:00] LABS: SARS-CoV-2 PCR by NAA Not Detected (NotDetected)
[2021-08-05] MEDS: Enoxaparin Sodium 40 MG/0.4 ML SYRINGE SC SCH (21:55)
[2021-08-05] MEDS: Atorvastatin Calcium 10 MG TAB PO SCH (21:55)
[2021-08-06] MEDS: Acetaminophen 325 MG TAB PO SCH ×4 (00:07→16:49)
[2021-08-06] MEDS: traMADol HCl 50 MG TAB PO PRN (08:22)
[2021-08-06] MEDS: Senokot S 8.6-50 MG TAB PO SCH ×2 (08:23→20:48)
[2021-08-06] MEDS: Carvedilol 25 MG TAB PO SCH ×2 (08:23→20:48)
[2021-08-06] MEDS: Folic Acid 1 MG TAB PO SCH (08:23)
[2021-08-06] MEDS: Clopidogrel Bisulfate 75 MG TAB PO SCH (08:23)
[2021-08-06] MEDS: Sodium Chloride 1 GM TAB PO SCH (08:24)
[2021-08-06] MEDS: Polyethylene Glycol 3350 17 GM Packet PO SCH (08:24)
[2021-08-06] MEDS: Atorvastatin Calcium 10 MG TAB PO SCH (20:48)
[2021-08-06] MEDS: Enoxaparin Sodium 40 MG/0.4 ML SYRINGE SC SCH (20:48)
[2021-08-06] MEDS: Cyclobenzaprine 10 MG TAB PO PRN (20:56)
[2021-08-07] MEDS: Acetaminophen 325 MG TAB PO SCH ×4 (00:12→18:15)
[2021-08-07] MEDS: Senokot S 8.6-50 MG TAB PO SCH ×2 (08:30→20:46)
[2021-08-07] MEDS: Sodium Chloride 1 GM TAB PO SCH (08:30)
[2021-08-07] MEDS: Carvedilol 25 MG TAB PO SCH ×2 (08:32→20:47)
[2021-08-07] MEDS: Folic Acid 1 MG TAB PO SCH (08:32)
[2021-08-07] MEDS: Clopidogrel Bisulfate 75 MG TAB PO SCH (08:32)
[2021-08-07] MEDS: Polyethylene Glycol 3350 17 GM Packet PO SCH (08:32)
[2021-08-07] MEDS: Enoxaparin Sodium 40 MG/0.4 ML SYRINGE SC SCH (20:47)
[2021-08-07] MEDS: Atorvastatin Calcium 10 MG TAB PO SCH (20:47)
[2021-08-08] MEDS: Acetaminophen 325 MG TAB PO SCH ×4 (00:26→17:14)
[2021-08-08 08:00] LABS: Hemoglobin 11.7 g/dL (14.0-18.0); Platelet Count 238 thou/uL (130-400)
[2021-08-08] MEDS: Sodium Chloride 1 GM TAB PO SCH (08:47)
[2021-08-08] MEDS: Carvedilol 25 MG TAB PO SCH ×2 (08:47→20:35)
[2021-08-08] MEDS: Polyethylene Glycol 3350 17 GM Packet PO SCH (08:47)
[2021-08-08] MEDS: Folic Acid 1 MG TAB PO SCH (08:47)
[2021-08-08] MEDS: Clopidogrel Bisulfate 75 MG TAB PO SCH (08:47)
[2021-08-08] MEDS: Senokot S 8.6-50 MG TAB PO SCH ×2 (08:48→20:35)
[2021-08-08] MEDS: Enoxaparin Sodium 40 MG/0.4 ML SYRINGE SC SCH (20:35)
[2021-08-08] MEDS: Atorvastatin Calcium 10 MG TAB PO SCH (20:35)
[2021-08-09] MEDS: Acetaminophen 325 MG TAB PO SCH ×4 (00:28→18:31)
[2021-08-09] MEDS: Clopidogrel Bisulfate 75 MG TAB PO SCH (08:55)
[2021-08-09] MEDS: Carvedilol 25 MG TAB PO SCH ×2 (08:55→20:42)
[2021-08-09] MEDS: Polyethylene Glycol 3350 17 GM Packet PO SCH (08:55)
[2021-08-09] MEDS: Folic Acid 1 MG TAB PO SCH (08:55)
[2021-08-09] MEDS: Senokot S 8.6-50 MG TAB PO SCH ×2 (08:55→20:42)
[2021-08-09] MEDS: Sodium Chloride 1 GM TAB PO SCH (08:55)
[2021-08-09] MEDS: Atorvastatin Calcium 10 MG TAB PO SCH (20:42)
[2021-08-09] MEDS: Enoxaparin Sodium 40 MG/0.4 ML SYRINGE SC SCH (20:42)
[2021-08-10] MEDS: Acetaminophen 325 MG TAB PO SCH ×4 (01:26→18:31)
[2021-08-10] MEDS: Carvedilol 25 MG TAB PO SCH ×2 (09:29→21:51)
[2021-08-10] MEDS: Sodium Chloride 1 GM TAB PO SCH (09:29)
[2021-08-10] MEDS: Folic Acid 1 MG TAB PO SCH (09:29)
[2021-08-10] MEDS: Clopidogrel Bisulfate 75 MG TAB PO SCH (09:29)
[2021-08-10] MEDS: Senokot S 8.6-50 MG TAB PO SCH ×2 (09:30→21:51)
[2021-08-10] MEDS: Polyethylene Glycol 3350 17 GM Packet PO SCH (09:30)
[2021-08-10] MEDS: Atorvastatin Calcium 10 MG TAB PO SCH (21:51)
[2021-08-10] MEDS: Enoxaparin Sodium 40 MG/0.4 ML SYRINGE SC SCH (21:51)
[2021-08-11] MEDS: Acetaminophen 325 MG TAB PO SCH ×4 (00:05→18:36)
[2021-08-11] MEDS: traMADol HCl 50 MG TAB PO PRN ×2 (05:37→21:17)
[2021-08-11 06:26] LABS: Hemoglobin 11.4 g/dL (14.0-18.0); Platelet Count 230 thou/uL (130-400)
[2021-08-11] MEDS: Sodium Chloride 1 GM TAB PO SCH (09:01)
[2021-08-11] MEDS: Folic Acid 1 MG TAB PO SCH (09:01)
[2021-08-11] MEDS: Clopidogrel Bisulfate 75 MG TAB PO SCH (09:01)
[2021-08-11] MEDS: Carvedilol 25 MG TAB PO SCH ×2 (09:01→21:11)
[2021-08-11] MEDS: Senokot S 8.6-50 MG TAB PO SCH ×2 (09:02→21:13)
[2021-08-11] MEDS: Polyethylene Glycol 3350 17 GM Packet PO SCH (09:02)
[2021-08-11] MEDS: Atorvastatin Calcium 10 MG TAB PO SCH (21:11)
[2021-08-11] MEDS: Enoxaparin Sodium 40 MG/0.4 ML SYRINGE SC SCH (21:12)
[2021-08-12] MEDS: Acetaminophen 325 MG TAB PO SCH ×4 (00:17→19:54)
[2021-08-12] MEDS: traMADol HCl 50 MG TAB PO PRN (09:01)
[2021-08-12] MEDS: Clopidogrel Bisulfate 75 MG TAB PO SCH (09:07)
[2021-08-12] MEDS: Carvedilol 25 MG TAB PO SCH ×2 (09:07→20:44)
[2021-08-12] MEDS: Folic Acid 1 MG TAB PO SCH (09:08)
[2021-08-12] MEDS: Sodium Chloride 1 GM TAB PO SCH (09:08)
[2021-08-12] MEDS: Polyethylene Glycol 3350 17 GM Packet PO SCH (09:09)
[2021-08-12] MEDS: Senokot S 8.6-50 MG TAB PO SCH ×2 (09:10→20:44)
[2021-08-12] MEDS: Atorvastatin Calcium 10 MG TAB PO SCH (20:44)
[2021-08-12] MEDS: Enoxaparin Sodium 40 MG/0.4 ML SYRINGE SC SCH (20:45)
[2021-08-13] MEDS: Acetaminophen 325 MG TAB PO SCH ×4 (00:09→18:09)
[2021-08-13] MEDS: traMADol HCl 50 MG TAB PO PRN (09:27)
[2021-08-13] MEDS: Polyethylene Glycol 3350 17 GM Packet PO SCH (09:30)
[2021-08-13] MEDS: Sodium Chloride 1 GM TAB PO SCH (09:30)
[2021-08-13] MEDS: Folic Acid 1 MG TAB PO SCH (09:30)
[2021-08-13] MEDS: Clopidogrel Bisulfate 75 MG TAB PO SCH (09:30)
[2021-08-13] MEDS: Senokot S 8.6-50 MG TAB PO SCH ×2 (09:30→20:13)
[2021-08-13] MEDS: Carvedilol 25 MG TAB PO SCH ×2 (09:30→20:13)
[2021-08-13] MEDS: Atorvastatin Calcium 10 MG TAB PO SCH (20:13)
[2021-08-13] MEDS: Enoxaparin Sodium 40 MG/0.4 ML SYRINGE SC SCH (20:13)
[2021-08-13 21:07] LABS: SARS-CoV-2 PCR by NAA Not Detected (NotDetected)
[2021-08-14] MEDS: Acetaminophen 325 MG TAB PO SCH ×4 (00:18→18:06)
[2021-08-14 04:46] LABS: Hemoglobin 10.1 g/dL (14.0-18.0); Platelet Count 183 thou/uL (130-400)
[2021-08-14] MEDS: Sodium Chloride 1 GM TAB PO SCH (08:46)
[2021-08-14] MEDS: Folic Acid 1 MG TAB PO SCH (08:46)
[2021-08-14] MEDS: Clopidogrel Bisulfate 75 MG TAB PO SCH (08:47)
[2021-08-14] MEDS: Senokot S 8.6-50 MG TAB PO SCH ×2 (08:47→20:48)
[2021-08-14] MEDS: Carvedilol 25 MG TAB PO SCH ×2 (08:47→20:47)
[2021-08-14] MEDS: Polyethylene Glycol 3350 17 GM Packet PO SCH (08:48)
[2021-08-14] MEDS: Atorvastatin Calcium 10 MG TAB PO SCH (20:47)
[2021-08-14] MEDS: Enoxaparin Sodium 40 MG/0.4 ML SYRINGE SC SCH (20:47)
[2021-08-15] MEDS: Acetaminophen 325 MG TAB PO SCH ×4 (00:07→17:46)
[2021-08-15] MEDS: Clopidogrel Bisulfate 75 MG TAB PO SCH (09:49)
[2021-08-15] MEDS: Folic Acid 1 MG TAB PO SCH (09:49)
[2021-08-15] MEDS: Carvedilol 25 MG TAB PO SCH ×2 (09:49→20:46)
[2021-08-15] MEDS: Senokot S 8.6-50 MG TAB PO SCH ×2 (09:49→20:46)
[2021-08-15] MEDS: Sodium Chloride 1 GM TAB PO SCH (09:49)
[2021-08-15] MEDS: Polyethylene Glycol 3350 17 GM Packet PO SCH (09:50)
[2021-08-15] MEDS: traMADol HCl 50 MG TAB PO PRN (09:53)
[2021-08-15] MEDS: Enoxaparin Sodium 40 MG/0.4 ML SYRINGE SC SCH (20:46)
[2021-08-15] MEDS: Atorvastatin Calcium 10 MG TAB PO SCH (20:46)
[2021-08-16] MEDS: Acetaminophen 325 MG TAB PO SCH ×4 (00:12→18:08)
[2021-08-16] MEDS: Senokot S 8.6-50 MG TAB PO SCH ×2 (09:11→20:33)
[2021-08-16] MEDS: Clopidogrel Bisulfate 75 MG TAB PO SCH (09:12)
[2021-08-16] MEDS: Sodium Chloride 1 GM TAB PO SCH (09:12)
[2021-08-16] MEDS: Carvedilol 25 MG TAB PO SCH ×2 (09:12→20:34)
[2021-08-16] MEDS: Folic Acid 1 MG TAB PO SCH (09:12)
[2021-08-16] MEDS: Polyethylene Glycol 3350 17 GM Packet PO SCH (09:14)
[2021-08-16] MEDS: traMADol HCl 50 MG TAB PO PRN (09:16)
[2021-08-16] MEDS: Atorvastatin Calcium 10 MG TAB PO SCH (20:33)
[2021-08-16] MEDS: Enoxaparin Sodium 40 MG/0.4 ML SYRINGE SC SCH (20:33)
[2021-08-17] MEDS: Acetaminophen 325 MG TAB PO SCH ×4 (05:31→18:30)
[2021-08-17 06:08] LABS: Hemoglobin 10.9 g/dL (14.0-18.0); Platelet Count 204 thou/uL (130-400)
[2021-08-17] MEDS: Sodium Chloride 1 GM TAB PO SCH (09:40)
[2021-08-17] MEDS: Carvedilol 25 MG TAB PO SCH ×2 (09:40→21:19)
[2021-08-17] MEDS: Senokot S 8.6-50 MG TAB PO SCH ×2 (09:40→21:20)
[2021-08-17] MEDS: Clopidogrel Bisulfate 75 MG TAB PO SCH (09:40)
[2021-08-17] MEDS: Polyethylene Glycol 3350 17 GM Packet PO SCH (09:40)
[2021-08-17] MEDS: Folic Acid 1 MG TAB PO SCH (09:40)
[2021-08-17] MEDS: Enoxaparin Sodium 40 MG/0.4 ML SYRINGE SC SCH (21:18)
[2021-08-17] MEDS: Atorvastatin Calcium 10 MG TAB PO SCH (21:19)
[2021-08-18] MEDS: Acetaminophen 325 MG TAB PO SCH ×4 (00:18→16:58)
[2021-08-18] MEDS: Clopidogrel Bisulfate 75 MG TAB PO SCH (08:49)
[2021-08-18] MEDS: Folic Acid 1 MG TAB PO SCH (08:49)
[2021-08-18] MEDS: Sodium Chloride 1 GM TAB PO SCH (08:49)
[2021-08-18] MEDS: Senokot S 8.6-50 MG TAB PO SCH ×2 (08:49→21:10)
[2021-08-18] MEDS: Carvedilol 25 MG TAB PO SCH ×2 (08:49→21:10)
[2021-08-18] MEDS: Polyethylene Glycol 3350 17 GM Packet PO SCH (08:50)
[2021-08-18] MEDS: Atorvastatin Calcium 10 MG TAB PO SCH (21:10)
[2021-08-18] MEDS: Enoxaparin Sodium 40 MG/0.4 ML SYRINGE SC SCH (21:10)
[2021-08-18] MEDS: traMADol HCl 50 MG TAB PO PRN (21:21)
[2021-08-19] MEDS: Acetaminophen 325 MG TAB PO SCH ×4 (01:08→17:39)
[2021-08-19] MEDS: Senokot S 8.6-50 MG TAB PO SCH ×2 (08:38→20:36)
[2021-08-19] MEDS: Carvedilol 25 MG TAB PO SCH ×2 (08:38→20:37)
[2021-08-19] MEDS: Folic Acid 1 MG TAB PO SCH (08:38)
[2021-08-19] MEDS: Sodium Chloride 1 GM TAB PO SCH (08:38)
[2021-08-19] MEDS: Clopidogrel Bisulfate 75 MG TAB PO SCH (08:38)
[2021-08-19] MEDS: Polyethylene Glycol 3350 17 GM Packet PO SCH (08:39)
[2021-08-19] MEDS: traMADol HCl 50 MG TAB PO PRN (08:46)
[2021-08-19] MEDS: Enoxaparin Sodium 40 MG/0.4 ML SYRINGE SC SCH (20:37)
[2021-08-19] MEDS: Atorvastatin Calcium 10 MG TAB PO SCH (20:37)
[2021-08-20] MEDS: Acetaminophen 325 MG TAB PO SCH ×3 (00:14→12:02)
[2021-08-20 04:07] VITALS: TEMP 98
[2021-08-20 05:44] LABS: Hemoglobin 10.5 g/dL (14.0-18.0); Platelet Count 208 thou/uL (130-400)
[2021-08-20] MEDS: Clopidogrel Bisulfate 75 MG TAB PO SCH (08:32)
[2021-08-20] MEDS: Sodium Chloride 1 GM TAB PO SCH (08:32)
[2021-08-20] MEDS: Folic Acid 1 MG TAB PO SCH (08:33)
[2021-08-20] MEDS: Polyethylene Glycol 3350 17 GM Packet PO SCH (08:33)
[2021-08-20] MEDS: Senokot S 8.6-50 MG TAB PO SCH (08:33)
[2021-08-20] MEDS: Carvedilol 25 MG TAB PO SCH (08:33)
[2021-08-20 12:32] VITALS: BP 102/50
[2021-08-21] MEDS ORDERED: FLU VACC QS2021-22(65YR UP)/PF 240 MCG/0.7 ML SYRINGE IM ONE (19:15)
== END 2021-08-20 13:57 | disposition home or self-care (01) | DRG 561 ==
LOC: BURMED 15:15
PROVIDERS: ADMIT Family Medicine; ATTEND Family Medicine
DX: S72.002D Fracture of unspecified part of neck of left femur, subsequent encounter for closed fracture with routine healing (principal); W19.XXXD Unspecified fall, subsequent encounter; I10 Essential (primary) hypertension; E78.5 Hyperlipidemia, unspecified; I73.9 Peripheral vascular disease, unspecified; K59.00 Constipation, unspecified; Z20.822 Contact with and (suspected) exposure to COVID-19; I95.1 Orthostatic hypotension
CPT/HCPCS: 36415; 80053; 82565; 82607; 82746; 85014; 85018; 85025; 85049; J1650; U0003; U0005

== ENCOUNTER 2021-10-03 05:56 | Emergency (ER) | payer MEDICARE ==
[2021-10-03 06:19] LABS: #Basophils 0.1 thou/uL (0.0-0.2); #Eosinphils 0.1 thou/uL (0.0-0.7); #Lymphocytes 0.4 thou/uL (1.20-3.40); #Monocytes 0.8 thou/uL (0.11-0.59); #Neutrophils 6.3 thou/uL (1.40-6.50); %Basophils 1.3 % (0.0-1.0); %Eosinophils 1.9 % (0.0-10.0); %Lymphocytes 5.4 % (21.0-51.0); %Monocytes 9.8 % (0.0-10.0); %Neutrophils 81.5 % (42.0-75.0); Hemoglobin 11.7 g/dL (14.0-18.0); Mean Corpuscular HGB CONC 32.5 g/dL (32.0-36.0); Mean Corpuscular Hemoglobin 33.2 pg (27.0-31.0); Mean Platelet Volume 6.6 fL (7.4-10.4); Platelet Count 250 thou/uL (130-400); RBC Distribution Width 12.3 % (11.5-14.5); Red Blood Cell (RBC) Count 3.51 mill/uL (4.70-6.10); White Blood Cell (WBC) Count 7.7 thou/uL (4.8-10.8)
[2021-10-03 06:37] LABS: ALT (SGPT) 12 U/L (8-55); AST (SGOT) 25 U/L (5-34); Albumin 3.7 g/dL (3.4-4.8); Alkaline Phosphatase 115 U/L (40-110); Anion Gap 16 mmol/L (10-20); BUN (Urea Nitrogen) 13 mg/dL (8.4-25.7); Bilirubin, Total 0.8 mg/dL (0.2-1.2); Calc. Creatinine Clearance 0 mL/min (70-130); Calcium 10.2 mg/dL (7.8-10.44); Carbon Dioxide 23 mmol/L (23-31); Chloride 98 mmol/L (98-107); Globulin 3.8 g/dL (2.4-3.5); Glucose 132 mg/dL (83-110); Lipase 39 U/L (8-78); Potassium 5.2 mmol/L (3.5-5.1); Protein, Total 7.5 g/dL (5.8-8.1); Sodium 132 mmol/L (136-145)
[2021-10-03] MEDS ORDERED: Azithromycin 500 MG VIAL ONE ×2 (06:37→06:44)
[2021-10-03] MEDS ORDERED: Acetaminophen 500 MG TAB ONE (06:37)
[2021-10-03] MEDS ORDERED: cefTRIAXone\\ROCEPHIN 2 GM VIAL ONE (06:37)
[2021-10-03 06:54] LABS: CKMB 1.1 ng/mL (0-6.6)
[2021-10-03 06:57] LABS: Bilirubin Negative (Negative); Blood, Urine Negative (Negative); Clarity Clear (Clear); Glucose, Urine (Dipstick) Negative (Negative); Ketone, Urine Trace mg/dL (Negative); Leukocyte Negative (Negative); Nitrite Negative (Negative); Protein, Urine (Dipstick) Trace mg/dL (Neg-Trace); Specific Gravity, Urine 1.015 (1.005-1.030); Urobilinogen 0.2 mg/dL (Less than 2)
[2021-10-03 07:36] LABS: SARS-CoV-2 NAA Rapid Test Not Detected (NotDetected)
== END 2021-10-03 09:00 | disposition short-term general hospital (02) ==
LOC: BURERS 05:56
DX: A41.9 Sepsis, unspecified organism (principal); J18.9 Pneumonia, unspecified organism; R77.8 Other specified abnormalities of plasma proteins; R79.1 Abnormal coagulation profile; I49.9 Cardiac arrhythmia, unspecified; I10 Essential (primary) hypertension; E78.5 Hyperlipidemia, unspecified; Z20.822 Contact with and (suspected) exposure to COVID-19; Z79.899 Other long term (current) drug therapy
CPT/HCPCS: 0240U; 71045; 80053; 81003; 82553; 83605; 83690; 83880; 84484; 85025; 85379; 87040; 87149 ×2; 93005; 94760; 36415; 96374; 96375; J0456; J0696

== ENCOUNTER 2021-10-24 09:56 | Emergency (ER) | payer MEDICARE ==
[2021-10-24 11:05] LABS: #Basophils 0.1 thou/uL (0.0-0.2); #Eosinphils 0.2 thou/uL (0.0-0.7); #Lymphocytes 0.8 thou/uL (1.20-3.40); #Monocytes 0.4 thou/uL (0.11-0.59); #Neutrophils 4.1 thou/uL (1.40-6.50); %Basophils 1.4 % (0.0-1.0); %Eosinophils 3.8 % (0.0-10.0); %Lymphocytes 13.8 % (21.0-51.0); %Monocytes 6.7 % (0.0-10.0); %Neutrophils 74.4 % (42.0-75.0); Hemoglobin 11.1 g/dL (14.0-18.0); Mean Corpuscular HGB CONC 32.9 g/dL (32.0-36.0); Mean Corpuscular Hemoglobin 33.2 pg (27.0-31.0); Mean Platelet Volume 6.7 fL (7.4-10.4); Platelet Count 235 thou/uL (130-400); RBC Distribution Width 13.5 % (11.5-14.5); Red Blood Cell (RBC) Count 3.35 mill/uL (4.70-6.10); White Blood Cell (WBC) Count 5.5 thou/uL (4.8-10.8)
[2021-10-24 11:18] LABS: ALT (SGPT) 12 U/L (8-55); AST (SGOT) 22 U/L (5-34); Albumin 3.6 g/dL (3.4-4.8); Alkaline Phosphatase 87 U/L (40-110); Anion Gap 14 mmol/L (10-20); BUN (Urea Nitrogen) 13 mg/dL (8.4-25.7); Bilirubin, Total 0.7 mg/dL (0.2-1.2); Calc. Creatinine Clearance 0 mL/min (70-130); Calcium 9.4 mg/dL (7.8-10.44); Carbon Dioxide 24 mmol/L (23-31); Chloride 104 mmol/L (98-107); Globulin 3.1 g/dL (2.4-3.5); Glucose 115 mg/dL (83-110); Potassium 4.7 mmol/L (3.5-5.1); Protein, Total 6.7 g/dL (5.8-8.1); Sodium 137 mmol/L (136-145)
[2021-10-24 11:36] LABS: CKMB 1.8 ng/mL (0-6.6)
[2021-10-24 12:14] LABS: Bilirubin Negative (Negative); Blood, Urine Negative (Negative); Clarity Clear (Clear); Glucose, Urine (Dipstick) Negative (Negative); Ketone, Urine Negative (Negative); Leukocyte Negative (Negative); Nitrite Negative (Negative); Protein, Urine (Dipstick) Negative (Neg-Trace); Specific Gravity, Urine 1.015 (1.005-1.030); Urobilinogen 0.2 mg/dL (Less than 2)
== END 2021-10-24 14:35 | disposition home or self-care (01) ==
LOC: BURERS 09:56
DX: R55 Syncope and collapse (principal); I10 Essential (primary) hypertension; E78.5 Hyperlipidemia, unspecified; Z79.899 Other long term (current) drug therapy
CPT/HCPCS: 36415; 71045; 80053; 81003; 82553; 84484; 85025; 93005; 94760

== ENCOUNTER 2023-06-30 12:02 | Outpatient (CLI) | payer MEDICARE | END 2023-06-30 12:03 | disposition home or self-care (01) | LOC: BURCT 12:02 | PROVIDERS: ATTEND Family Medicine | DX: M47.816 Spondylosis without myelopathy or radiculopathy, lumbar region (principal); R07.81 Pleurodynia; R41.3 Other amnesia; R42 Dizziness and giddiness; I67.82 Cerebral ischemia; G93.89 Other specified disorders of brain; S22.31XA Fracture of one rib, right side, initial encounter for closed fracture; M85.88 Other specified disorders of bone density and structure, other site; M89.38 Hypertrophy of bone, other site; M25.78 Osteophyte, vertebrae | CPT/HCPCS: 70450; 72110 ==

== ENCOUNTER 2023-11-16 11:04 | Outpatient (CLI) | payer MEDICARE ==
[2023-11-16 11:40] LABS: INR-International Normal Ratio 1.1; Prothrombin Time 14.2 sec (12.0-14.7)
[2023-11-16 11:42] LABS: Band 1 % (5-11); Eosinophils 2 % (0-10); Hematocrit 39.8 % (42.0-52.0); Hemoglobin 13.4 g/dL (14.0-18.0); Lymphocytes 28 % (21-51); MDiff Complete? YES; Mean Corpuscular HGB CONC 33.6 g/dL (32.0-36.0); Mean Corpuscular Hemoglobin 33.8 pg (27.0-31.0); Mean Platelet Volume 7.5 fL (7.4-10.4); Monocytes 10 % (0-10); Neutrophil 59 % (42-75); Platelet Count 185 10x3/uL (130-400); RBC Distribution Width 11.8 % (11.5-14.5); Red Blood Cell (RBC) Count 3.96 mill/uL (4.70-6.10); White Blood Cell (WBC) Count 5.5 10x3/uL (4.8-10.8)
[2023-11-16 12:41] LABS: ALT (SGPT) 10 U/L (8-55); AST (SGOT) 18 U/L (5-34); Albumin 3.8 g/dL (3.4-4.8); Alkaline Phosphatase 98 U/L (40-110); Anion Gap 14 mmol/L (10-20); BUN (Urea Nitrogen) 11 mg/dL (8.4-25.7); Bilirubin, Total 0.6 mg/dL (0.2-1.2); Calc. Creatinine Clearance 0 mL/min (70-130); Calcium 9.7 mg/dL (7.8-10.44); Carbon Dioxide 24 mmol/L (23-31); Chloride 100 mmol/L (98-107); Estimated GFR 67; Globulin 3.3 g/dL (2.4-3.5); Glucose 75 mg/dL (83-110); Potassium 4.2 mmol/L (3.5-5.1); Protein, Total 7.1 g/dL (5.8-8.1); Sodium 134 mmol/L (136-145)
[2023-11-16 12:55] LABS: Thyroid Stimulating Hormone 1.8718 uIU/mL (0.35-4.94)
[2023-11-16 17:15] LABS: Hemoglobin A1c 5.2 % (4.0-6.0)
[2023-11-16 17:58] LABS: HBCM Index 0.06 S/CO (0-0.79); HBSAg Index 0.18 S/CO (0-0.99); Hep A IgM AB Non-Reactive S/CO (NonReactive); Hep A IgM S/CO 0.14 S/CO (0-0.79); Hep B Surf Ag Non-Reactive S/CO (NonReactive); Hep C IgG Ab Non-Reactive S/CO (NonReactive); Hep C Index 0.05 S/CO (0-0.79); Hepatitis B Core IgM Abs Non-Reactive S/CO (NonReactive)
== END 2023-11-16 11:05 | disposition home or self-care (01) ==
LOC: BUREKG 11:04
PROVIDERS: ATTEND Family Medicine
DX: Z01.818 Encounter for other preprocedural examination (principal); Z11.59 Encounter for screening for other viral diseases; I25.10 Atherosclerotic heart disease of native coronary artery without angina pectoris; I10 Essential (primary) hypertension; Z79.899 Other long term (current) drug therapy
CPT/HCPCS: 36415; 71046; 80053; 80074; 83036; 84443; 85025; 85610; 93005; 93010

== ENCOUNTER 2024-10-03 14:02 | Emergency (ER) | payer MEDICARE ==
[2024-10-03 14:35] LABS: #Basophils 0.2 thou/uL (0.0-0.2); #Eosinophils 0.4 thou/uL (0.0-0.7); #Lymphocytes 1.3 thou/uL (1.20-3.40); #Monocytes 0.6 thou/uL (0.11-0.59); #Neutrophils 5.9 thou/uL (1.40-6.50); %Basophils 2.3 % (0.0-1.0); %Eosinophils 4.4 % (0.0-10.0); %Monocytes 7.5 % (0.0-10.0); %Neutrophils 70.9 % (42.0-75.0); Hematocrit 35.8 % (42.0-52.0); Hemoglobin 11.9 g/dL (14.0-18.0); Mean Corpuscular HGB CONC 33.2 g/dL (32.0-36.0); Mean Corpuscular Hemoglobin 33.2 pg (27.0-31.0); Mean Corpuscular Volume 99.8 fl (78.0-98.0); Mean Platelet Volume 6.5 fL (7.4-10.4); Platelet Count 181 10x3/uL (130-400); RBC Distribution Width 11.5 % (11.5-14.5); Red Blood Cell (RBC) Count 3.59 mill/uL (4.70-6.10); White Blood Cell (WBC) Count 8.3 10x3/uL (4.8-10.8)
[2024-10-03 14:55] LABS: ALT (SGPT) 11 U/L (8-55); AST (SGOT) 22 U/L (5-34); Albumin 3.8 g/dL (3.4-4.8); Alkaline Phosphatase 93 U/L (40-110); Anion Gap 14 mmol/L (10-20); BUN (Urea Nitrogen) 14 mg/dL (8.4-25.7); Bilirubin, Total 0.6 mg/dL (0.2-1.2); Calc. Creatinine Clearance 0 mL/min (70-130); Calcium 9.8 mg/dL (7.8-10.44); Carbon Dioxide 23 mmol/L (23-31); Chloride 95 mmol/L (98-107); Estimated GFR 63; Globulin 3.4 g/dL (2.4-3.5); Glucose 119 mg/dL (83-110); Magnesium 1.9 mg/dL (1.6-2.6); Potassium 5.3 mmol/L (3.5-5.1); Protein, Total 7.2 g/dL (5.8-8.1); Sodium 127 mmol/L (136-145); Troponin I Less than 0.010 ng/mL (< 0.028)
[2024-10-03 15:05] LABS: Bilirubin Negative (Negative); Blood, Urine Negative (Negative); Clarity Clear (Clear); Glucose, Urine (Dipstick) Negative (Negative); Ketone, Urine Negative (Negative); Leukocyte Negative (Negative); Nitrite Negative (Negative); Protein, Urine (Dipstick) Negative (Neg-Trace); Urobilinogen 0.2 mg/dL (Less than 2); pH, Urine 7.5 (5.0-9.0)
[2024-10-03 15:08] LABS: Bacteria/HPF 1+ HPF (None Seen); CAUTI Indications for Culture Dysuria,urgency,freq; RBC/HPF 0-3 HPF (0-3); Squamous Epithelial 0-3 HPF (0-3); WBC/HPF None Seen HPF (0-3)
[2024-10-03 15:09] LABS: Urine Culture Reflex No No
[2024-10-03] MEDS ORDERED: Aspirin Chewable 81 MG TAB ONE (16:08)
== END 2024-10-04 00:18 | disposition short-term general hospital (02) ==
LOC: BURERS 14:02
DX: E87.1 Hypo-osmolality and hyponatremia (principal); I10 Essential (primary) hypertension; I25.10 Atherosclerotic heart disease of native coronary artery without angina pectoris; E78.5 Hyperlipidemia, unspecified; Z79.82 Long term (current) use of aspirin; Z79.899 Other long term (current) drug therapy
CPT/HCPCS: 36416; 70450; 71045; 80053; 81001; 83735; 83880; 84484; 85025; 93005; 94760; 96360; 96361